=== PATIENT | female | born 1975 | race Hispanic/Latino ===

== ENCOUNTER 2018-11-17 00:12 | Emergency (ER) | payer BC ==
[2018-11-17] MEDS ORDERED: Adacel (T-DAP) 0.5 ML SYRINGE ONE (00:26)
[2018-11-17] MEDS ORDERED: Lidocaine 1% 20 ML MDV ONE (00:28)
[2018-11-17] MEDS ORDERED: Bacitracin 1 PK ONE (00:56)
== END 2018-11-17 01:15 | disposition home or self-care (01) ==
LOC: SCSER 00:12
DX: S91.311A Laceration without foreign body, right foot, initial encounter (principal); S94 Injury of nerves at ankle and foot level; F32.9 Major depressive disorder, single episode, unspecified; Z79.899 Other long term (current) drug therapy; W26.8XXA Contact with other sharp object(s), not elsewhere classified, initial encounter
CPT/HCPCS: 12002; 90471; 90715; J2001